=== PATIENT | female | born 1960 | race Caucasian/White ===

== ENCOUNTER 2016-11-29 15:38 | Emergency (ER) | payer OTHER, SELFPAY ==
[2016-11-29 15:47] VITALS: O2SAT 99
--- NOTE | 2016-11-29 16:10 | ED PDOC ---
- ECG O2 Sat by Pulse Oximetry: 99 Disposition - Disposition Forms: [facility] (Lao)
--- NOTE | 2016-11-29 16:13 | ED PDOC ---
HPI: General Adult Time Seen by Provider: 11/29/16 15:55 Chief Complaint (Nursing): Anxiety History Per: Patient, Family (daughter) Additional Complaint(s): Pt.'s daughter states they've been having a chery problem at home and she sprayed her entire kitchen with Raid Chery Killer. Shortly prior to arrival pt. went into fridge and had a piece of watermelon and tasted a chemical taste and she immediately spit out the piece. She then developed a feeling of anxiety, abdominal pain, and rapid breathing. Daughter states that a few months ago pt.' s grandson and since then pt's has been having a difficult time dealing with stress. Denies SI/HI, hallucinations, chest pain, SOB, palpitations. Past Medical History Reviewed: Historical Data, Nursing Documentation, Vital Signs Vital Signs: Last Vital Signs Temp 98.8 F 11/29/16 21:02 Pulse 90 11/29/16 21:02 Resp 16 11/29/16 21:02 BP 123/81 11/29/16 21:02 Pulse Ox 99 11/29/16 21:02 - Family History Family History: States: No Known Family Hx - Allergies Allergies/Adverse Reactions: Allergies Allergy/AdvReac Type Severity Reaction Status Date / Time iodine Allergy ANAPHYLAXIS Verified 11/29/16 15:42 fruit Allergy RASH Uncoded 11/29/16 15:42 Review of Systems ROS Statement: Except As Marked, All Systems Reviewed And Found Negative Psych: Positive for: Anxiety Physical Exam - Reviewed Nursing Documentation Reviewed: Yes Vital Signs Reviewed: Yes - Physical Exam Appears: Positive for: Well, Non-toxic, No Acute Distress Head Exam: Positive for: ATRAUMATIC, NORMAL INSPECTION, NORMOCEPHALIC Skin: Positive for: Normal Color, Warm. Negative for: Rash Eye Exam: Positive for: EOMI, Normal appearance, PERRL ENT: Positive for: Normal ENT Inspection Neck: Positive for: Normal, Painless ROM Cardiovascular/Chest: Positive for: Regular Rate, Rhythm Respiratory: Positive for: CNT, Normal Breath Sounds Gastrointestinal/Abdominal: Positive for: Normal Exam, Bowel Sounds, Soft. Negative for: Tenderness Back: Positive for: Normal Inspection Extremity: Positive for: Normal ROM Neurologic/Psych: Positive for: Alert, Oriented, Mood/Affect (appears anxious). Negative for: Aphasia, Facial Droop - ECG O2 Sat by Pulse Oximetry: 99 - Progress ED Course And Treament: Ativan 1mg PO ordered. Crisis evaluation ordered. Disposition - Clinical Impression Clinical Impression: Anxiety - Patient ED Disposition Is Patient to be Admitted: Transfer of Care (Signed out to Morgan WHITFIELD pending crisis disposition.) - Disposition Disposition Time: 20:00 Condition: STABLE Instructions: Anxiety (ED) Print Language: GREEK
--- NOTE | 2016-11-29 20:57 | ED PDOC ---
- ECG O2 Sat by Pulse Oximetry: 99 - Progress ED Course And Treament: Case endorsed to fiction writer from Luther WHITFIELD pending crisis eval Patient evaluated by edge worker; does not meet criteria for admission at this time as per Dr. Morillo. Follow up outpatient therapy. Return to ED for worsening/concerning symptoms. Disposition - Clinical Impression Clinical Impression: Anxiety - POA Present On Arrival: None - Disposition Disposition: Routine/Home Disposition Time: 20:56 Condition: STABLE Instructions: Anxiety (ED) Print Language: THAI
[2016-11-29 21:03] VITALS: BP 123/81; PULSE 90; RESP 16; TEMP 98.8
== END 2016-11-29 21:03 | disposition home or self-care (01) ==
LOC: H.ER 15:38
DX: F41.9 Anxiety disorder, unspecified (principal)

== ENCOUNTER 2017-04-16 11:29 | Emergency (ER) | payer OTHER ==
[2017-04-16 11:54] VITALS: BP 129/81; PULSE 92; RESP 20; TEMP 97.8; O2SAT 97
--- NOTE | 2017-04-16 12:21 | ED PDOC ---
HPI: Female Pain Time Seen by Provider: 04/16/17 12:03 Chief Complaint (Nursing): Female Genitourinary Chief Complaint (Provider): Dysuria and Frequency History Per: Patient History/Exam Limitations: no limitations Onset/Duration Of Symptoms: Days (x1) Current Symptoms Are (Timing): Still Present Pain Scale Rating Of: 6 Associated Symptoms: denies: Fever, Vomiting, Back Pain (no flank pain) Alleviating Factors: None Additional Complaint(s): 56 year old female presenting with dysuria and frequency x1 day. The patient reports that she took Azo today without relief. She further states that she had similar symptoms last month and was treated with oral antibiotics. Denies fever , flank pain, vomiting. PMD: Non [facility] Provider, Abnormal Vaginal Bleeding: No Past Medical History Reviewed: Historical Data, Nursing Documentation, Vital Signs Vital Signs: Last Vital Signs Temp 97.8 F 04/16/17 11:51 Pulse 92 H 04/16/17 11:51 Resp 20 04/16/17 11:51 BP 129/81 04/16/17 11:51 Pulse Ox 97 04/16/17 11:51 - Medical History PMH: Arthritis Denies: Diabetes, Hepatitis, HIV, HTN, Seizures, Sexually Transmitted Disease - Surgical History Surgical History: - Family History Family History: States: Unknown Family Hx - Living Arrangements Living Arrangements: With Family - Home Medications Home Medications: Ambulatory Orders Medication Instructions Recorded Ciprofloxacin [Cipro] 500 mg PO BID #14 tab 04/16/17 - Allergies Allergies/Adverse Reactions: Allergies Allergy/AdvReac Type Severity Reaction Status Date / Time iodine Allergy ANAPHYLAXIS Verified 11/29/16 15:42 fruit Allergy RASH Uncoded 11/29/16 15:42 Review of Systems ROS Statement: Except As Marked, All Systems Reviewed And Found Negative Constitutional: Negative for: Fever Gastrointestinal: Negative for: Vomiting Genitourinary Female: Positive for: Dysuria, Frequency Musculoskeletal: Negative for: Back Pain (no flank pain) Physical Exam - Reviewed Nursing Documentation Reviewed: Yes Vital Signs Reviewed: Yes - Physical Exam Appears: Positive for: Non-toxic, No Acute Distress Head Exam: Positive for: NORMAL INSPECTION Skin: Positive for: Normal Color, Warm, Dry. Negative for: Rash Eye Exam: Positive for: Normal appearance, EOMI, PERRL Cardiovascular/Chest: Positive for: Regular Rate, Rhythm, Chest Non Tender. Negative for: Tachycardia Respiratory: Positive for: Normal Breath Sounds. Negative for: Respiratory Distress Gastrointestinal/Abdominal: Positive for: Normal Exam, Bowel Sounds, Soft. Negative for: Tenderness, Guarding, Rebound Back: Positive for: Normal Inspection. Negative for: L CVA Tenderness, R CVA Tenderness Neurologic/Psych: Positive for: Alert (A&Ox3), Oriented - Laboratory Results Urine dip results: Positive for: Leukocyte Esterase (large), Nitrate (positive) , Glucose (100). Negative for: Blood, Ketones, Bilirubin, Protein - ECG O2 Sat by Pulse Oximetry: 97 (RA) Pulse Ox Interpretation: Normal Medical Decision Making Medical Decision Makin Initial Impression 56 y/o female presenting with dysuria and frequency Initial Plan: * Udip * Urine Culture * Finger Stick * Reevaluation 1223 Finger stick performed: 100 __ Documented by Reina Albright acting as a scribe for Aroldo Sloan PA-C. All medical record entries made by the Scribe were at my direction and personally dictated by me. I have reviewed the chart and agree that the record accurately reflects my personal performance of the history, physical exam, medical decision making, and the department course for this patient. I have also personally directed, reviewed, and agree with the discharge instructions and disposition. Disposition - Clinical Impression Clinical Impression: Urinary tract infection - Patient ED Disposition Is Patient to be Admitted: No - Disposition Referrals: Brittani Dailey [Outside] Disposition: Routine/Home Disposition Time: 12:20 Condition: STABLE Additional Instructions: Follow up with PMD for further evaluation. Prescriptions: Ciprofloxacin [Cipro] 500 mg PO BID #14 tab Instructions: Urinary Tract Infection in Women (ED) Forms: [facility] (Macedonian) Print Language: TANZANIAN
== END 2017-04-16 12:46 | disposition home or self-care (01) ==
LOC: H.ER 11:29
DX: N39.0 Urinary tract infection, site not specified (principal)